=== PATIENT | male | born 1955 | race Caucasian/White ===

== ENCOUNTER → 2016-05-23 | Outpatient (CLI) | payer OTHER | END | disposition home or self-care (01) | LOC: YCFC.O 15:39 | PROVIDERS: ATTEND Nurse Practitioner Family | DX: R60.0 Localized edema (principal); Z00.00 Encounter for general adult medical examination without abnormal findings; R73.03 Prediabetes; Z87.891 Personal history of nicotine dependence; R06.00 Dyspnea, unspecified ==

== ENCOUNTER 2017-05-25 09:19 | Emergency (ER) | payer OTHER ==
[2017-05-25 09:46] VITALS: TEMP 97.1
--- NOTE | 2017-05-25 10:05 | ED.PDOC ---
History of Present Illness - General Chief Complaint: Abdominal Pain Stated Complaint: Blood in stool, low abdominal discomfort Time Seen by Provider: 05/25/17 09:52 Source: patient Exam Limitations: no limitations - History of Present Illness Initial Comments: Patient is a 61 yo M with PMH significant only for chronic back pain treated with OTC tylenol who presents with blood on the toilet paper and in the toilet with a bowel movment 2 hours ago. He denies previous episodes. He has mild RUQ pain that is aching, intermittent, and non-radiating. Worse with movement and palpation, better with rest. The pain started 6 hours ago and was sudden onset, associated with diaphoresis. No particular timing. No vomiting. Last meal was 14 hours ago and was unremarkable for symptoms. No history of abdominal surgeries. No cardiac history. No other complaints. Timing/Duration: 4-6 hours Severity: moderate Improving Factors: rest Worsening Factors: movement Associated Symptoms: diaphoresis Allergies/Adverse Reactions: Allergies Cephalexin Allergy (Verified 05/25/17 09:42) Vomitting Home Medications: Ambulatory Orders Azithromycin 250 mg PO DAILY #6 tab 05/25/17 Zjkzcqanetnvge-Lkpzhzajg-Lkgkv [Cortane-B 10-10-1 mg/ml] 1 lot SC TID #30 lot Review of Systems - Review of Systems Constitutional: States: diaphoresis EENTM: States: no symptoms reported Respiratory: States: no symptoms reported Cardiology: States: no symptoms reported Gastrointestinal/Abdominal: States: see HPI Genitourinary: States: no symptoms reported Musculoskeletal: States: no symptoms reported Skin: States: no symptoms reported Neurological: States: no symptoms reported Endocrine: States: no symptoms reported Hematologic/Lymphatic: States: no symptoms reported Past Medical History (General) - Patient Medical History Hx Stroke: No Hx Congestive Heart Failure: No Hx Diabetes: No Hx MRSA: No Surgical History: no surgical history - Vaccination History Hx Influenza Vaccination: No Hx Pneumococcal Vaccination: No - Social History Hx Tobacco Use: Yes Family Medical History - Family History Father Family History: No Known Living Status: Physical Exam - Physical Exam General Appearance: Alert Eye Exam: bilateral normal Ears, Nose, Throat: normal ENT inspection Neck: non-tender, full range of motion Respiratory: chest non-tender, lungs clear Cardiovascular/Chest: normal peripheral pulses, regular rate, rhythm Gastrointestinal/Abdominal: normal bowel sounds, tenderness - Over RUQ. Positive Salcido's sign. Negative Rovsing's. McBurney's point NTTP. Back Exam: no CVA tenderness Extremity: normal range of motion Neurologic: social work coordinator II-XII nml as tested, no motor/sensory deficits Skin Exam: normal color Lymphatic: no adenopathy Progress - Progress Progress: 05/25/17 12:10 Laboratory Tests 05/25/17 05/25/17 05/25/17 10:06 10:14 10:14 WBC 7.4 RBC 5.54 Hgb 15.6 Hct 45.6 MCV 82.3 MCH 28.1 MCHC 34.2 RDW 13.5 Plt Count 151 MPV 8.4 Absolute Neuts (auto) 6.10 Absolute Lymphs (auto) 0.70 L Absolute Monos (auto) 0.60 Absolute Eos (auto) 0.00 Absolute Basos (auto) 0.00 Neutrophils % 82.0 H Lymphocytes % 9.7 L Monocytes % 7.4 Eosinophils % 0.5 L Basophils % 0.4 PT 12.0 INR 1.060 PTT (SP) Sodium Potassium Chloride Carbon Dioxide Anion Gap BUN Creatinine BUN/Creatinine Ratio Random Glucose Serum Osmolality Calcium Total Bilirubin AST ALT Alkaline Phosphatase Creatine Kinase CK-MB (CK-2) CK-MB (CK-2) % Troponin I Serum Total Protein Albumin Globulin Albumin/Globulin Ratio Lipase TSH Thyroxine (T4) Urine Color Yellow Urine Appearance Clear Urine pH 5.5 Ur Specific Ivins 1.010 Urine Protein Negative Urine Glucose (UA) Negative Urine Ketones Negative Urine Blood Negative Urine Nitrite Negative Urine Bilirubin Negative Urine Urobilinogen 0.2 Ur Leukocyte Esterase Negative Urine RBC 0 Urine WBC 0 Ur Epithelial Cells 0 Urine Bacteria 0 05/25/17 05/25/17 05/25/17 10:14 10:14 10:14 WBC RBC Hgb Hct MCV MCH MCHC RDW Plt Count MPV Absolute Neuts (auto) Absolute Lymphs (auto) Absolute Monos (auto) Absolute Eos (auto) Absolute Basos (auto) Neutrophils % Lymphocytes % Monocytes % Eosinophils % Basophils % PT INR PTT (SP) 34.1 Sodium 140 Potassium 3.9 Chloride 105 Carbon Dioxide 25 Anion Gap 13.9 BUN 13 Creatinine 1.01 BUN/Creatinine Ratio 12.9 Random Glucose 116 H Serum Osmolality 280.5 Calcium 9.7 Total Bilirubin 1.0 AST 18 ALT 12 Alkaline Phosphatase 82 Creatine Kinase CK-MB (CK-2) CK-MB (CK-2) % Troponin I Serum Total Protein 7.8 Albumin 4.4 Globulin 3.4 Albumin/Globulin Ratio 1.3 Lipase 23 TSH Thyroxine (T4) Urine Color Urine Appearance Urine pH Ur Specific Ivins Urine Protein Urine Glucose (UA) Urine Ketones Urine Blood Urine Nitrite Urine Bilirubin Urine Urobilinogen Ur Leukocyte Esterase Urine RBC Urine WBC Ur Epithelial Cells Urine Bacteria 05/25/17 05/25/17 10:14 10:14 WBC RBC Hgb Hct MCV MCH MCHC RDW Plt Count MPV Absolute Neuts (auto) Absolute Lymphs (auto) Absolute Monos (auto) Absolute Eos (auto) Absolute Basos (auto) Neutrophils % Lymphocytes % Monocytes % Eosinophils % Basophils % PT INR PTT (SP) Sodium Potassium Chloride Carbon Dioxide Anion Gap BUN Creatinine BUN/Creatinine Ratio Random Glucose Serum Osmolality Calcium Total Bilirubin AST ALT Alkaline Phosphatase Creatine Kinase 129 CK-MB (CK-2) 4.4 CK-MB (CK-2) % Not Reportable Troponin I < 0.02 Serum Total Protein Albumin Globulin Albumin/Globulin Ratio Lipase TSH 1.93 Thyroxine (T4) 5.52 L Urine Color Urine Appearance Urine pH Ur Specific Ivins Urine Protein Urine Glucose (UA) Urine Ketones Urine Blood Urine Nitrite Urine Bilirubin Urine Urobilinogen Ur Leukocyte Esterase Urine RBC Urine WBC Ur Epithelial Cells Urine Bacteria CT ab/pelvis negative for acute disease. Patient given Z-pack since wbc differential showed mild elevation in neutrophils and stool was bloody. Also, given RX for HC/pramoxine for likely hemorrhoids. Departure - Departure Clinical Impression: Hemorrhoids Disposition: Discharge to Home or Self Care Condition: Good Departure Forms: ED Discharge - Pt. Copy, Patient Portal Self Enrollment Instructions: DI for Abdominal Pain-Adult Diet: resume usual diet Activity: increase activity as tolerated Prescriptions: Azithromycin 250 mg PO DAILY #6 tab Xefrvefiwiowtb-Epfttriox-Jiumt [Cortane-B 10-10-1 mg/ml] 1 lot SC TID #30 lot Home Medications: Ambulatory Orders Azithromycin 250 mg PO DAILY #6 tab 05/25/17 Jwbbirwzadzxvq-Oqusaiwva-Ewgqo [Cortane-B 10-10-1 mg/ml] 1 lot SC TID #30 lot Additional Instructions: See a primary care physician if the bleeding does not stop within one week. Return to the E.R. for worsening.
[2017-05-25] MEDS ORDERED: LABETALOL INJ 5 MG/ML VIAL IV PRN (10:08)
--- NOTE | 2017-05-25 10:51 | RAD ---
EXAM DESCRIPTION: Chest,2 Views CLINICAL HISTORY: right upper abdominal pain COMPARISON: None Available. TECHNIQUE: PA/lateral Findings/impression: Cardiac silhouette and pulmonary vascularity are within normal limits. Mildly prominent peribronchial wall thickening, greatest in the bilateral lower lung zones. This is nonspecific, and can be seen with reactive airway disease versus bronchitis. Minimal linear opacities in the bilateral lung bases most likely represent subsegmental atelectasis. Otherwise, lungs are clear without definite focal consolidative infiltrates. No pleural effusion. No pneumothorax. No acute osseous abnormality. Electronically signed by: James Bellamy MD 05/25/2017 10:50 AM ENDOSCOPE TECHNICIAN
--- NOTE | 2017-05-25 11:49 | CT ---
EXAM DESCRIPTION: Abdomen/Pelvis w/wo Contrast CLINICAL HISTORY: 61 years Male, abdominal pain and rectal bleeding COMPARISON: None. TECHNIQUE: Transaxial images were obtained pre and post administration of intravenous contrast medium without oral contrast media. Sagittal and coronal reconstruction was performed.This exam was performed according to our departmental dose-optimization program, which includes automated exposure control, adjustment of the mA and/or kV according to patient size and/or use of iterative reconstruction technique. FINDINGS: Small focal pleural plaques are observed on both diaphragms. The lung bases are clear. A small focal splenic hemangioma is observed posteriorly. The liver is unremarkable. No biliary ductal dilatation is observed. The gallbladder is normal in appearance. No adrenal masses are detected. The pancreas is normal in appearance. Calcific atherosclerotic changes observed in the abdominal aorta without evidence of aneurysmal dilatation. A 1.42 cm diameter simple cyst is observed in the upper pole the patient's left kidney. A second smaller cyst is observed inferiorly. No solid mass or hydronephrosis is observed. Small punctate nonobstructing calculi are observed in the lower poles of both kidneys. No free fluid is observed. No inguinal region abnormality is detected. No bowel abnormality is detected. Degenerative changes are observed in the lower lumbar spine. Grade 2 spondylolisthesis of L5 on S1 is observed. Bilateral L5 spondylolysis is noted. IMPRESSION: 1. A small splenic hemangioma is observed. 2. Small simple cysts are detected in the left kidney. 3. Small bilateral nonobstructing renal calculi are observed. 4. A grade 2 spondylolisthesis of L5 on S1 is observed. Electronically signed by: James Cote MD 05/25/2017 11:48 AM GIS MANAGER
[2017-05-25 12:42] VITALS: BP 173/84; O2SAT 95
== END 2017-05-25 12:42 | disposition home or self-care (01) ==
LOC: ER 09:19
DX: K64.9 Unspecified hemorrhoids (principal); R10.11 Right upper quadrant pain; Z87.891 Personal history of nicotine dependence

== ENCOUNTER → 2017-06-07 | Outpatient (CLI) | payer OTHER | LOC: LAB.O 06:58 | PROVIDERS: ATTEND Nurse Practitioner Family | DX: Z00.00 Encounter for general adult medical examination without abnormal findings (principal); R73.09 Other abnormal glucose; R60.0 Localized edema; Z13.220 Encounter for screening for lipoid disorders ==

== ENCOUNTER 2019-10-25 20:47 | Emergency (ER) | payer OTHER ==
[2019-10-25 21:03] VITALS: TEMP 98.4
--- NOTE | 2019-10-25 21:05 | ED.PDOC ---
History of Present Illness - General Chief Complaint: Chest Pain/CT Stated Complaint: Chest pain, sob Time Seen by Provider: 10/25/19 21:02 Source: patient, RN notes reviewed, Vital Signs reviewed Exam Limitations: no limitations - History of Present Illness Initial Comments: This is a 64-year-old male with no significant past medical history presenting to the emergency department for "hardness in his chest" after he walked by a dumpster last night and "10,000 parasites flew up my nose and down into my lungs". He reports some mild shortness of breath. No fever. No leg swelling. No previous cardiac history. He denies any cough, sore throat, runny nose. Patient hypertensive on arrival 196/106. He denies taking any blood pressure medications. No previous cardiac history Allergies/Adverse Reactions: Allergies Cephalexin Allergy (Verified 05/25/17 09:42) Vomitting Home Medications: Ambulatory Orders Azithromycin 250 mg PO DAILY #6 tab 05/25/17 Psyajdzzajcjwd-Icjtqxiyr-Jqnkp [Cortane-B 10-10-1 mg/ml] 1 lot [place] TID #30 lot 05/25/17 Lisinopril 20 mg PO DAILY #60 tab 10/25/19 Review of Systems - Review of Systems Constitutional: Denies: chills EENTM: Denies: nose congestion, throat pain, mouth swelling Respiratory: States: short of breath. Denies: cough, orthopnea, wheezing Cardiology: States: chest pain. Denies: edema, syncope Gastrointestinal/Abdominal: Denies: diarrhea, nausea Genitourinary: Denies: dysuria, hematuria Musculoskeletal: Denies: joint pain, muscle stiffness, neck pain Skin: Denies: lesions, rash Neurological: Denies: headache, paresthesia, pre-existing deficit Endocrine: States: no symptoms reported Hematologic/Lymphatic: States: no symptoms reported Past Medical History (General) - Patient Medical History Hx Seizures: No Hx Stroke: No Hx Dementia: No Hx Asthma: No Hx of COPD: No Hx Cardiac Disorders: No Hx Congestive Heart Failure: No Hx Pacemaker: No Hx Hypertension: No Hx Thyroid Disease: No Hx Diabetes: No Hx Gastroesophageal Reflux: No Hx Renal Disease: No Hx Cancer: No Hx of HIV: No Hx Hepatitis C: No Hx MRSA: No Surgical History: no surgical history - Vaccination History Hx Tetanus, Diphtheria Vaccination: No Hx Influenza Vaccination: No Hx Pneumococcal Vaccination: No Immunizations Up to Date: No - Social History Hx Tobacco Use: No Hx Chewing Tobacco Use: No Hx Alcohol Use: No Hx Substance Use: No Hx Substance Use Treatment: No Hx Depression: No Feels Threatened In Home Enviroment: No Feels Threatened In a Relationship: No Hx Physical Abuse: No Hx Emotional Abuse: No Hx Suspected Abuse: No - Female History Patient is a Female of Child Bearing Age (10 -59 yrs old): No Family Medical History - Family History Father Family History: No Known Living Status: Physical Exam - Physical Exam General Appearance: Alert, Comfortable, No apparent distress Ears, Nose, Throat: hearing grossly normal, normal ENT inspection Neck: non-tender, full range of motion, supple Respiratory: lungs clear, normal breath sounds, no respiratory distress, no accessory muscle use, other - Bilateral anterior chest wall tenderness. No crepitus, no deformities. No subcutaneous emphysema. Cardiovascular/Chest: normal peripheral pulses, regular rate, rhythm, no edema, no gallop, no JVD Peripheral Pulses: radial,right: 2+, radial,left: 2+ Gastrointestinal/Abdominal: non tender, soft Back Exam: normal inspection, no CVA tenderness, no vertebral tenderness Extremity: non-tender, normal inspection, no pedal edema Neurologic: alert, normal mood/affect, oriented x 3 Skin Exam: normal color, warm/dry Progress - Progress Progress: 10/25/19 22:36 Rechecked. Discussed lab findings, chest x-ray findings, EKG findings. BP still slightly elevated 149/99. Will start lisinopril. Recommended follow-up with PCP in 3 to 5 days for recheck. Strict warnings given to return the emergency room for worsening chest pain, shortness of breath, fever, hemoptysis, leg swelling, or any other concerns. 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 He states that he had "10,000 parasites flying to his nose and into his lungs last night while walking by a trash can." He is reporting some chest pain and shortness of breath. EKG showed an incomplete right bundle branch block with LVH and he was fairly hypertensive on arrival. He does not take any medicines for his hypertension. Due to new chest pain and shortness of breath in the setting of a patient whose history is very unreliable and has an abnormal EKG with markedly elevated blood pressure, I elected to draw blood work. Creatinine is normal, troponin negative, BNP normal. Chest x-ray showed no acute process. Will start lisinopril and refer to PCP. Strict warnings given to her return the emergency room for worsening. Abimael Harvey DO [facility] #[id number] - Results/Orders Results/Orders: EKG reviewed personally by me at 2107. Sinus bradycardia, rate of 56, incomplete right bundle branch block, LVH, poor R wave progression, no ST segment elevations or depressions Chest x-ray reviewed personally by me at 10:20 PM. X-ray shows no acute process. No infiltrates, no pneumothorax 10/25/19 21:03 EKG Assessment ONCE 10/25/19 21:15 EKG STAT Laboratory Results - last 24 hr 10/25/19 10/25/19 10/25/19 21:17 21:17 21:17 WBC 6.0 RBC 4.77 Hgb 14.5 Hct 41.4 L MCV 86.9 MCH 30.5 MCHC 35.1 RDW 14.0 Plt Count 164 MPV 7.8 Absolute Neuts (auto) 3.60 Absolute Lymphs (auto) 1.70 Absolute Monos (auto) 0.50 Absolute Eos (auto) 0.20 Absolute Basos (auto) 0.00 Neutrophils % 60.3 Lymphocytes % 27.7 Monocytes % 8.1 Eosinophils % 3.4 Basophils % 0.5 Sodium 139 Potassium 3.6 Chloride 108 Carbon Dioxide 23 Anion Gap 11.6 L BUN 11 Creatinine 1.16 BUN/Creatinine Ratio 9.5 L Random Glucose 117 H Serum Osmolality 278.0 Calcium 9.0 Troponin I 0.02 B-Natriuretic Peptide 30.3 Departure - Departure Clinical Impression: Acute chest pain, Uncontrolled hypertension Disposition: Discharge to Home or Self Care Condition: Good Departure Forms: ED Discharge - Pt. Copy, Patient Portal Self Enrollment Instructions: DI for Chest Pain Diet: resume usual diet Activity: increase activity as tolerated Prescriptions: Lisinopril 20 mg PO DAILY #60 tab Home Medications: Ambulatory Orders Azithromycin 250 mg PO DAILY #6 tab 05/25/17 Fvhssojbfvlyvs-Djebpupsf-Yrjds [Cortane-B 10-10-1 mg/ml] 1 lot [place] TID #30 lot 05/25/17 Lisinopril 20 mg PO DAILY #60 tab 10/25/19
[2019-10-25] MEDS ORDERED: ASPIRIN TABLET 325 MG TAB PO ONE (21:11)
--- NOTE | 2019-10-25 21:41 | RAD ---
CHEST 1 VIEW on 10/25/2019 CLINICAL INDICATION: Chest pain COMPARISON: 05/25/2017 FINDINGS: There is slight elevation of the right hemidiaphragm. Mild chronic interstitial changes are noted. Lungs are otherwise clear. Cardiac, hilar and mediastinal contours are within normal limits. Pulmonary vascularity is within normal limits. IMPRESSION: No acute disease. Electronically signed by: Pedro Hector 10/25/2019 9:40 PM CDT
[2019-10-25] MEDS ORDERED: LISINOPRIL 10 MG TAB PO ONE (21:51)
[2019-10-25 21:52] VITALS: O2SAT 98
[2019-10-25 22:04] VITALS: BP 150/89
== END 2019-10-25 22:40 | disposition home or self-care (01) ==
LOC: ER 20:47
DX: R07.89 Other chest pain (principal); I10 Essential (primary) hypertension; R06.02 Shortness of breath; R00.1 Bradycardia, unspecified; I45.10 Unspecified right bundle-branch block; Z79.899 Other long term (current) drug therapy; Z88.1 Allergy status to other antibiotic agents